=== PATIENT | female | born 2005 | race African-American/Black ===

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

== ENCOUNTER → 2023-04-14 | Outpatient (CLI) | payer OTHER ==
[~2023-04-14] MED LIST changes: -AMIT25TA17; +AMIT25TA19
[2023-04-14 18:43] LABS: HEMATOCRIT 36.3 % (36.0-47.0); MEAN CORPUSCULAR HEMOGLOBIN 29.4 pg (27.0-33.0); MEAN CORPUSCULAR HGB CONC 33.1 g/dl (32.0-36.5); PLATELET COUNT, AUTOMATED 338 10^3/uL (150-450); RED BLOOD COUNT 4.08 10^6/uL (4.00-5.40); WHITE BLOOD COUNT 8.3 10^3/uL (4.0-10.0)
[2023-04-14 19:48] LABS: HIV 1&2 SCREEN NEGATIVE (NEGATIVE)
[2023-04-14 19:56] LABS: HEPATITIS C VIRUS ABY INDEX 0.05 INDEX (<0.8)
[2023-04-14 20:50] LABS: CHLAMYDIA DNA AMPLIFICATION NEGATIVE (NEGATIVE); GC DNA AMPLIFICATION NEGATIVE (NEGATIVE)
== END ==
LOC: M PLALAB 15:12
PROVIDERS: ATTEND Advanced Practice Midwife
DX: O99.342 Other mental disorders complicating pregnancy, second trimester (principal)

== ENCOUNTER → 2023-06-17 | Outpatient (CLI) | payer OTHER | LOC: M WHC 10:14 | PROVIDERS: ATTEND Obstetrics & Gynecology | DX: Z34.02 Encounter for supervision of normal first pregnancy, second trimester (principal) ==

== ENCOUNTER → 2023-08-19 | Outpatient (CLI) | payer OTHER ==
[2023-08-19 13:27] LABS: HEMATOCRIT 32.6 % (36.0-47.0); HEMOGLOBIN 10.6 g/dl (12.0-15.5); MEAN CORPUSCULAR HEMOGLOBIN 29.2 pg (27.0-33.0); MEAN CORPUSCULAR HGB CONC 32.5 g/dl (32.0-36.5); MEAN CORPUSCULAR VOLUME 89.8 fl (80.0-96.0); PLATELET COUNT, AUTOMATED 347 10^3/uL (150-450); RED BLOOD COUNT 3.63 10^6/uL (4.00-5.40); WHITE BLOOD COUNT 9.4 10^3/uL (4.0-10.0)
[2023-08-19 15:03] LABS: GC DNA AMPLIFICATION NEGATIVE (NEGATIVE)
== END ==
LOC: M PLALAB 08:18
PROVIDERS: ATTEND Obstetrics & Gynecology
DX: Z34.92 Encounter for supervision of normal pregnancy, unspecified, second trimester (principal)

== ENCOUNTER → 2023-08-26 | Outpatient (CLI) | payer OTHER | LOC: M LAB 07:31 | PROVIDERS: ATTEND Obstetrics & Gynecology | DX: O99.810 Abnormal glucose complicating pregnancy (principal) ==

== ENCOUNTER → 2023-09-06 | Outpatient (CLI) | payer OTHER ==
[2023-09-06 13:22] LABS: HEMATOCRIT 31.3 % (36.0-47.0); HEMOGLOBIN 10.2 g/dl (12.0-15.5); MEAN CORPUSCULAR HGB CONC 32.6 g/dl (32.0-36.5); MEAN CORPUSCULAR VOLUME 88.9 fl (80.0-96.0); PLATELET COUNT, AUTOMATED 338 10^3/uL (150-450); RED BLOOD COUNT 3.52 10^6/uL (4.00-5.40); WHITE BLOOD COUNT 7.9 10^3/uL (4.0-10.0)
[2023-09-06 13:48] LABS: ALBUMIN 2.7 G/DL (3.2-5.2); BILIRUBIN,DIRECT 0.2 MG/DL (<0.4); BILIRUBIN,TOTAL 0.6 MG/DL (0.3-1.2); TOTAL PROTEIN 5.8 G/DL (5.7-8.2)
== END ==
LOC: M PLALAB 11:37
PROVIDERS: ATTEND Advanced Practice Midwife
DX: Z34.03 Encounter for supervision of normal first pregnancy, third trimester (principal); L29.9 Pruritus, unspecified

== ENCOUNTER → 2023-09-27 | Outpatient (REF) | payer OTHER | LOC: M PLALAB 09:36 | PROVIDERS: ATTEND Advanced Practice Midwife | DX: Z34.03 Encounter for supervision of normal first pregnancy, third trimester (principal); Z36.85 Encounter for antenatal screening for Streptococcus B ==

== ENCOUNTER 2023-10-12 08:55 | Inpatient (IN) | payer OTHER ==
[2023-10-12] VITALS (26 sets, daily range): BP systolic 116–179; BP diastolic 74–109; O2SAT 98
[~2023-10-12] VITALS: Ht 172.7 cm; Wt 96.1 kg
[2023-10-12] MEDS ORDERED: OXYTOCIN DRIP 30 UNITS in IV 1 EA IV PRN (09:35)
[2023-10-12] MEDS ORDERED: LIDOCAINE 1% MDV 20ML VIAL INFIL PRN (09:35)
[2023-10-12] MEDS ORDERED: TRANEXAMIC ACID INJection 1,000 MG in NS 100 ML IV PRN (09:35)
[2023-10-12] MEDS ORDERED: CARBOPROST TROMETHAMINE 250 MCG/ML AMP IM PRN (09:35)
[2023-10-12] MEDS ORDERED: OXYTOCIN INJ 10UNITS/ML 1ML VIAL IM PRN (09:35)
[2023-10-12 09:59] LABS: APPEARANCE, URINE HAZY (CLEAR); BACTERIA, URINE AUTO NEGATIVE (NEGATIVE); BILIRUBIN, URINE AUTO NEGATIVE (NEGATIVE); BLOOD, URINE BLOOD NEGATIVE (NEGATIVE); COLOR, URINE YELLOW (YELLOW); GLUCOSE, URINE (UA) AUTO NEGATIVE (NEGATIVE); KETONE, URINE AUTO NEGATIVE (NEGATIVE); LEUKOCYTE ESTERASE, URINE AUTO NEGATIVE (NEGATIVE); NITRITE, URINE AUTO NEGATIVE (NEGATIVE); PROTEIN, URINE AUTO 2+ mg/dL (NEGATIVE); RBC, URINE AUTO 1 /HPF (0-3); SPECIFIC GRAVITY URINE AUTO 1.021 (1.002-1.035); SQUAMOUS EPITHELIAL CELL UR AU 1 /HPF (0-6); UROBILINOGEN, URINE AUTO 0.2 mg/dL (0.0-2.0); WBC, URINE AUTO 1 /HPF (0-3)
[2023-10-12 10:36] LABS: HEMATOCRIT 30.3 % (36.0-47.0); MEAN CORPUSCULAR HEMOGLOBIN 28.9 pg (27.0-33.0); MEAN CORPUSCULAR VOLUME 87.6 fl (80.0-96.0); PLATELET COUNT, AUTOMATED 306 10^3/uL (150-450); RED BLOOD COUNT 3.46 10^6/uL (4.00-5.40); WHITE BLOOD COUNT 8.5 10^3/uL (4.0-10.0)
[2023-10-12] MEDS: miSOPROStol 50MCG 1/2 TABLET PO SCH (10:44)
[2023-10-12 10:54] LABS: TOTAL PROTEIN,RANDOM URINE 75.2 MG/DL (0.0-14.0)
[2023-10-12 10:59] LABS: CREATININE,RANDOM URINE 124.6 MG/DL
[2023-10-12 11:01] LABS: LDH LACTATE DEHYDROGENASE 192 U/L (120-246)
[2023-10-12 11:02] LABS: ALT/SGPT < 9 U/L (7.0-40); AST/SGOT 15 U/L (<34); BILIRUBIN,TOTAL 0.5 MG/DL (0.3-1.2); CREATININE FOR GFR 0.55 MG/DL (0.55-1.30)
[2023-10-12 11:38] LABS: HEPATITIS C VIRUS ABY INDEX 0.02 INDEX (<0.8)
[2023-10-12] MEDS: LABETALOL 100MG/20ML VIAL IV STA (12:41)
[2023-10-12] MEDS: ACETAMINOPHEN 500 MG TAB PO PRN (14:53)
[2023-10-12] MEDS ORDERED: PRENTAB9 PO (17:22)
[2023-10-12] MEDS ORDERED: HOME MED LIST COMPLETE! XX SCH (17:25)
[2023-10-13] VITALS (41 sets, daily range): BP systolic 119–158; BP diastolic 61–99; O2SAT 97–99
[2023-10-13 07:01] LABS: HEMATOCRIT 30.5 % (36.0-47.0); MEAN CORPUSCULAR HEMOGLOBIN 28.8 pg (27.0-33.0); MEAN CORPUSCULAR HGB CONC 32.8 g/dl (32.0-36.5); MEAN CORPUSCULAR VOLUME 87.9 fl (80.0-96.0); PLATELET COUNT, AUTOMATED 279 10^3/uL (150-450); RED BLOOD COUNT 3.47 10^6/uL (4.00-5.40); WHITE BLOOD COUNT 8.7 10^3/uL (4.0-10.0)
[2023-10-13] MEDS: LR 1,000 ML IV SCH (08:42)
[2023-10-13] MEDS: OXYTOCIN DRIP 30 UNITS in IV 1 EA IV SCH ×2 (08:57→20:36)
[2023-10-13] MEDS ORDERED: diphenhydrAMINE 50MG/ML VIAL IV PRN (16:05)
[2023-10-13] MEDS ORDERED: EPIDURAL/PCA KEYS XX PRN (16:05)
[2023-10-13] MEDS ORDERED: ONDANSETRON 4MG 2ML VIAL IV PRN (16:05)
[2023-10-13] MEDS ORDERED: LR 500 ML IV PRN (16:05)
[2023-10-13] MEDS ORDERED: ePHEDrine SULFATE 25 MG/5 ML(5MG/ML) SYRINGE IVP PRN (16:05)
[2023-10-13] MEDS ORDERED: NALOXONE INJ 0.4MG/1ML VIAL IV PRN (16:05)
[2023-10-13] MEDS: FENTANYL/ROPIVACAINE/NACL BAG 100 ML EPIDURAL SCH (16:29)
[2023-10-13 19:35] LABS: CORD GAS ABE A -2.6; CORD GAS HCO3 A 23.7 MMOL/L; CORD GAS O2 SAT A 57.4 %; CORD GAS PCO2 A 46.1 mmHg; CORD GAS PH A 7.329 UNITS; CORD GAS PO2 A 24.4 mmHg; CORD GAS SBC A 21.3 MMOL/L; CORD GAS TCO2 A 25.1 MMOL/L
[2023-10-13] MEDS ORDERED: ACETAMINOPHEN TAB 650MG DOSE (2X325MG) PO PRN (19:35)
[2023-10-13] MEDS ORDERED: METHYLERGONOVINE MALEATE 0.2 MG TAB PO PRN (19:35)
[2023-10-13] MEDS ORDERED: IBUPROFEN 600MG TAB PO PRN (19:35)
[2023-10-13] MEDS ORDERED: DOCUSATE SODIUM 100MG CAPSULE PO PRN (19:35)
[2023-10-13] MEDS ORDERED: IBUPROFEN 800 MG TAB PO PRN (19:35)
[2023-10-13] MEDS ORDERED: RHO(D) IMMUNE GLOBULIN/MALTOSE 500MCG(2500IU)/2.2ML VIAL (WINRHO) IM SCH (19:35)
[2023-10-13] MEDS ORDERED: ACETAMINOPHEN 500 MG TAB PO PRN (19:35)
[2023-10-13 19:37] LABS: CORD GAS ABE V -2.5; CORD GAS HCO3 V 22.9 MMOL/L; CORD GAS O2 SAT V 62.8 %; CORD GAS PCO2 V 41.5 mmHg; CORD GAS PH V 7.359 UNITS; CORD GAS PO2 V 24.1 mmHg; CORD GAS SBC V 21.7 MMOL/L; CORD GAS TCO2 V 24.1 MMOL/L
[2023-10-13] MEDS: LABETALOL 200 MG TAB PO SCH (20:37)
[2023-10-14] VITALS (7 sets, daily range): BP systolic 124–150; BP diastolic 70–100; O2SAT 97–99
[2023-10-14] MEDS: PRENATAL VITAMINS CHEWABLE TABLET PO SCH (08:17)
[2023-10-15 02:00] VITALS: BP 132/75; O2SAT 100
[2023-10-15 05:00] VITALS: BP 144/81; O2SAT 96
[2023-10-15 08:45] VITALS: BP 142/81
[2023-10-15] MEDS: DIBUCAINE 1% OINTMENT 30GM TOP PRN (08:46)
[2023-10-15] MEDS ORDERED: MEASLES,MUMPS,RUBELLA VACCINE INJ (MMR-II) SC.IMMUN ONE (09:00)
[2023-10-15 09:05] VITALS: O2SAT 98
[2023-10-15] MEDS ORDERED: LABE20TAB PO (09:15)
[2023-10-15] MEDS ORDERED: ACET-683 PO (09:15)
[2023-10-15] MEDS ORDERED: COLA100C5 PO (09:15)
[2023-10-15] MEDS ORDERED: IBUP-1022 PO (09:15)
[2023-10-15 10:14] VITALS: BP 142/81; TEMP 98.5; O2SAT 98
== END 2023-10-15 15:45 | disposition home or self-care (01) | DRG 560 ==
LOC: M LDI 08:55 → M OBS 10-13 21:31
PROVIDERS: ADMIT Advanced Practice Midwife; ATTEND Obstetrics & Gynecology
PROC: 3E0P7GC Introduction of Other Therapeutic Substance into Female Reproductive, Via Natural or Artificial Opening (ICD-10-PCS; 2023-10-12)
PROC: 10E0XZZ Delivery of Products of Conception, External Approach (ICD-10-PCS; principal; 2023-10-13)
PROC: 10907ZC Drainage of Amniotic Fluid, Therapeutic from Products of Conception, Via Natural or Artificial Opening (ICD-10-PCS; 2023-10-13)
DX: O13.4 Gestational [pregnancy-induced] hypertension without significant proteinuria, complicating childbirth (principal); O69.81X0 Labor and delivery complicated by cord around neck, without compression, not applicable or unspecified; Z3A.39 39 weeks gestation of pregnancy; Z79.899 Other long term (current) drug therapy; Z37.0 Single live birth

== ENCOUNTER → 2023-12-22 | Outpatient (REF) ==
[~2023-12-22] MED LIST changes: +ACET-683 PO; +COLA100C5 PO; +LABE20TAB PO; +PRENTAB9 PO
== END ==
LOC: M EMP 11:51
PROVIDERS: ATTEND Family Medicine
DX: Z11.52 Encounter for screening for COVID-19 (principal)

== ENCOUNTER 2024-04-03 15:08 | Emergency (ER) | payer MEDICAID, OTHER ==
[~2024-04-03] VITALS: Ht 175.3 cm; Wt 82.6 kg
[~2024-04-03 15:08] MED LIST changes: -CYCL5TAB PO; +CYCL5TAB4 PO
[2024-04-03 15:11] VITALS: TEMP 98.6
[2024-04-03] MEDS ORDERED: IBUP80TA PO (17:35)
[2024-04-03] MEDS ORDERED: LIDO1PAD TOP (17:35)
[2024-04-03] MEDS: LIDOCAINE 5% (LIDODERM) PATCH TD ONE (17:47)
[2024-04-03 17:49] VITALS: BP 111/70; O2SAT 98
== END 2024-04-03 17:52 | disposition home or self-care (01) ==
LOC: M ED 15:08
DX: M54.50 Low back pain, unspecified (principal); Z79.1 Long term (current) use of non-steroidal anti-inflammatories (NSAID); Z79.810 Long term (current) use of selective estrogen receptor modulators (SERMs)

== ENCOUNTER → 2024-06-20 | Outpatient (REF) ==
[~2024-06-20] MED LIST changes: +IBUP80TA PO; +LIDO1PAD TOP
== END ==
LOC: M EMP 06-19 08:01
PROVIDERS: ATTEND Family Medicine
DX: Z11.52 Encounter for screening for COVID-19 (principal); Z20.822 Contact with and (suspected) exposure to COVID-19

== ENCOUNTER 2025-01-25 19:29 | Emergency (ER) | payer OTHER, SELFPAY ==
[~2025-01-25] VITALS: Ht 180.3 cm; Wt 87.9 kg
[~2025-01-25 19:29] MED LIST changes: -IBUP-1022 PO; +IBUP600T42 PO
[2025-01-25] MEDS ORDERED: CEPH500C PO (22:08)
[2025-01-25 22:12] VITALS: BP 131/75; TEMP 98.9; O2SAT 98
== END 2025-01-25 22:20 | disposition home or self-care (01) ==
LOC: M ED 19:29
DX: S60.940A Unspecified superficial injury of right index finger, initial encounter (principal); Y92.9 Unspecified place or not applicable; Y93.9 Activity, unspecified; Y99.9 Unspecified external cause status; Z79.1 Long term (current) use of non-steroidal anti-inflammatories (NSAID); Z79.2 Long term (current) use of antibiotics; Z79.899 Other long term (current) drug therapy; Z79.810 Long term (current) use of selective estrogen receptor modulators (SERMs)